=== PATIENT | male | born 1940 | race Caucasian/White ===

== ENCOUNTER → 2017-10-01 | Outpatient (CLI) | payer OTHER ==
[~2017-10-01] MED LIST: AMLODIPINE BESY10 MG PO; DICLOXACILLIN500 MG PO; DOXYCYCLINE 10100 MG PO; ETODOLAC 400 M400 M1 PO; FENOFIBRATE160 MG PO; FLOMAX0.4 MG PO; HYDROCHLOROTHIA25 M2 PO; LIORESAL 10 MG10 MG PO; RANITIDINE 150150 M1 PO; TRIAMCINOLONE A80 G2 TOP; VALTREX 500 MG500 M1 PO; VITAMIN D2000 UNIT PO; [UNRECOGNIZED DRUG - OTHER]
== END ==
LOC: M.RAD 13:36
DX: M51.37 Other intervertebral disc degeneration, lumbosacral region (principal); M47.816 Spondylosis without myelopathy or radiculopathy, lumbar region; M51.36 Other intervertebral disc degeneration, lumbar region; M12.88 Other specific arthropathies, not elsewhere classified, other specified site; M48.07 Spinal stenosis, lumbosacral region

== ENCOUNTER 2020-01-12 20:10 | Emergency (ER) | payer OTHER ==
[~2020-01-12] VITALS: Ht 175.3 cm; Wt 72.6 kg
[2020-01-13 00:40] VITALS: BP 129/77
== END 2020-01-13 00:40 | disposition home or self-care (01) ==
LOC: M.ERS 20:10
DX: S01.81XA Laceration without foreign body of other part of head, initial encounter (principal); I10 Essential (primary) hypertension; E78.00 Pure hypercholesterolemia, unspecified; K21.9 Gastro-esophageal reflux disease without esophagitis; W01.0XXA Fall on same level from slipping, tripping and stumbling without subsequent striking against object, initial encounter; Y93.89 Activity, other specified; Y92.89 Other specified places as the place of occurrence of the external cause; Y99.8 Other external cause status